=== PATIENT | female | born 1965 | race Caucasian/White ===

== ENCOUNTER 2018-11-15 08:03 | Day surgery (SDC) | payer BC ==
[~2018-11-15] VITALS: Ht 152.4 cm; Wt 57.2 kg
[2018-11-15] MEDS ORDERED: fentaNYL CITRATE/PF 100 MCG/2 ML AMP IVP ONE (09:35)
[2018-11-15] MEDS ORDERED: MIDAZOLAM HCL 5 MG/5 ML VIAL IVP ONE (09:35)
[2018-11-15] MEDS ORDERED: KETOROLAC TROMETHAMINE 30 MG VIAL IVP ONE (09:35)
[2018-11-15] MEDS ORDERED: SUCCINYLCHOLINE CHLORIDE 20 MG/ML(QUELICIN) IVP ONE (09:35)
[2018-11-15] MEDS ORDERED: SEVOFLURANE 15 MIN GAS INH ONE (09:35)
[2018-11-15] MEDS ORDERED: BACITRACIN ZINC 15 GM TOPICAL OINTMENT TP ONE (09:35)
[2018-11-15] MEDS ORDERED: NS IRRIG SOLN 1000 ML IR ONE (09:35)
[2018-11-15] MEDS ORDERED: LR 1,000 ML IV.SOLN IV ONE (09:35)
[2018-11-15] MEDS ORDERED: CEFAZOLIN 1 GM IVPB PREMIX 50 ML IV ONE (09:35)
[2018-11-15] MEDS ORDERED: THROMBIN (BOVINE) 5000 UNITS/ VIAL TP ONE ×2 (09:35→11:30)
[2018-11-15] MEDS ORDERED: ONDANSETRON HCL 4 MG/2 ML VIAL IVP ONE (09:35)
[2018-11-15] MEDS ORDERED: LIDOCAINE/EPI 1% 1:100000 20 ML VIAL INJ ONE (09:35)
[2018-11-15] MEDS ORDERED: PROPOFOL 200MG/ 20ML VIAL (DIPRIVAN) IV ONE (09:35)
[2018-11-15] MEDS ORDERED: ROCURONIUM BROMIDE 10 MG/ML (ZEMURON) IV ONE (09:35)
[2018-11-15] MEDS ORDERED: fentaNYL CITRATE 250 MCG/5 ML AMP IV ONE (09:35)
[2018-11-15] MEDS ORDERED: LR 1,000 ML IV SCH (10:42)
[2018-11-15] MEDS ORDERED: MEPERIDINE HCL/PF 25 MG/ML DISP.SYRIN IVP PRN (10:45)
[2018-11-15] MEDS ORDERED: HYDROmorphone 1 MG INJ. 1 MG/ML AMPUL IVP PRN (10:45)
[2018-11-15] MEDS ORDERED: HYDROmorphone 2 MG/ML VIAL IVP PRN ×2 (10:45)
[2018-11-15] MEDS ORDERED: ONDANSETRON HCL 4 MG/2 ML VIAL IVP PRN (12:30)
[2018-11-15] MEDS ORDERED: ONDANSETRON HCL 4 MG/2 ML VIAL ONE (13:55)
[2018-11-15] MEDS: NORMAL SALINE 5 ML DISP.SYRIN IVF SCH ×4 (14:00→22:00)
--- NOTE | 2018-11-15 14:00 | NUR ---
initial notes rec patient form rr s/p rt thyroidectomy. awake alert with ivf infusing well on the l hand. no infiltration noted. resp easy and unlabored. bed to the the lowest position and side rails up and locked. call light withn reached. dressing on the ant neck area intact. no bleeding noted. accompanied by at bedside.
--- NOTE | 2018-11-15 16:00 | NUR ---
rounds family at bedside. with hob elevated. no sob noted.
[2018-11-15 16:45] VITALS: BP_SYST 101
--- NOTE | 2018-11-15 18:20 | NUR ---
PAGED I PAGED CRYSTAL [phone] @ 1820 I SPOKE WITH BRITTANY ROJAS'S FACILITIES ENGINEER SHE SAID DR. 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 BAINS IS ASBESTOS REMOVAL WORKER AT HIS MOMENT.
--- NOTE | 2018-11-15 18:22 | NUR ---
PAGED I PAGED DR. BAINS @ [phone] I SPOKE WITH BASSAM COLLABORATIVE PHYSICIAN DR. BAINS CALLED BACK @ [phone]
[2018-11-15] MEDS: HYDROcodone/ACETAMIN 5-325 MG TAB (NORCO/ VICODIN) PO PRN (18:57)
[2018-11-15] MEDS ORDERED: BENZOCAINE/MENTHOL 1 EACH LOZENGE MM PRN (19:00)
[2018-11-15] MEDS ORDERED: guaiFENesin/DEXTROMETHORPHAN 10 ML UDC PO PRN (19:00)
--- NOTE | 2018-11-15 19:00 | NUR ---
closing notes pt ambu;lated to th e br and mark well. voided as stated. no sob noted. call light withn reached and knows when to call for assistance. dressing dry and intact and no bleeding noted. will endorsed to night nurse maggie.
[2018-11-15 20:00] VITALS: BP_SYST 120
--- NOTE | 2018-11-15 20:00 | NUR ---
Initial note: Received report from dayshift RN. Patient is awake in bed, no acute distress. Alert and oriented x4. Tolerating room air. IV to left AC is patent and benign, saline locked. Patient is s/p right thyroidectomy, original surgical dressing in place, clean, dry, intact. Call light is with patient. Safety, fall precautions in place. Will continue with plan of care.
[2018-11-15] MEDS: DEXAMETHASONE SOD PHOSPHATE 10 MG/ML VIAL IVP SCH (21:18)
--- NOTE | 2018-11-15 23:09 | NUR ---
Rounds: Patient is asleep, no distress noted. Respirations are even and unlabored on room air. Call light with patient. Will continue monitoring.
[2018-11-16 01:28] VITALS: BP_SYST 103
--- NOTE | 2018-11-16 02:25 | NUR ---
Rounds: Patient is sleeping in bed, no acute distress. Respirations are even, unlabored on room air. Call light is with patient. Will continue to monitor.
[2018-11-16] MEDS: HYDROcodone/ACETAMIN 5-325 MG TAB (NORCO/ VICODIN) PO PRN (02:54)
--- NOTE | 2018-11-16 02:57 | NUR ---
Pain: Patient complained of right side neck pain 5/10. Educated patient regarding [place] 5-325 indications and side effects, patient verbalized understanding. Administered medication as ordered. Call light with patient, will continue to monitor.
--- NOTE | 2018-11-16 04:28 | NUR ---
Rounds: Patient is resting in bed with eyes closed, no distress. Tolerating room air, respirations are even and unlabored. Call light is with patient. Will continue to monitor.
[2018-11-16] MEDS: NORMAL SALINE 5 ML DISP.SYRIN IVF SCH ×2 (06:00→06:14)
[2018-11-16] MEDS: DEXAMETHASONE SOD PHOSPHATE 10 MG/ML VIAL IVP SCH (06:13)
--- NOTE | 2018-11-16 06:46 | NUR ---
Closing note: Patient is awake, sitting up in bed. No acute distress. IV site remains patent and benign. Patient inspired 1500 ML using incentive spirometer. All needs met. HOB maintained above 30 degrees. Safety, fall precautions observed. Hourly rounding performed throughout shift. Will endorse care to dayshift RN.
--- NOTE | 2018-11-16 07:25 | NUR ---
AM ROUNDS: PATIENT ON THE BED,AWAKE,ALERT AND ORIENTED X4. WITH STERI STRIPS AT RIGHT NECK,CLEAN AND DRY. VISITOR AT THE BEDSIDE.DR GOMEZ JUST SEEN PATIENT AND DC ORDER PER PATIENT. INFORMED PATIENT WILL CHECK THE ORDER AND PREPARE THE DC PAPERS AFTER BREAKFAST.NO ACTIVE BLEEDING NOTED AT THE INCISION SITE.
[2018-11-16 08:47] VITALS: BP_SYST 99
--- NOTE | 2018-11-16 09:10 | NUR ---
Ambulates: Patient ambulates in the hallway . No problem.
[2018-11-16 09:55] VITALS: BP_SYST 99
--- NOTE | 2018-11-16 10:24 | NUR ---
D/C Patient Patient given medication reconciliation form and D/C instructions. Exit Care provided. Patient verbalized understanding. MD discussed with patient the results and treatment provided. Ambulatory with steady gait for discharge to home. Patient in stable condition, ID band removed. IV catheter removed, intact and dressing applied, no active bleeding. Patient already has prescriptions of pain meds and antibiotic given by Dr. Montague yesterday per patient. Patient educated on pain management. All belongings sent with patient.
== END 2018-11-16 10:24 | disposition home or self-care (01) ==
LOC: SDS 08:03 → SMU 08:03 → EDSTATUS 08:30 → SMU 18:41 → SDS 11-16 10:24
PROVIDERS: ATTEND Otolaryngology Plastic Surgery within the Head & Neck
DX: C73 Malignant neoplasm of thyroid gland (principal)
CPT/HCPCS: 60220; 88307; 88333; C1782; J0330; J0690; J1100 ×2; J1885; J2250; J2405; J2704; J3010 ×2; J7120

== ENCOUNTER 2018-12-06 06:00 | Day surgery (SDC) | payer BC ==
[~2018-12-06] VITALS: Ht 152.4 cm; Wt 56.7 kg
[2018-12-06] MEDS ORDERED: LIDOCAINE/EPI 1% 1:100000 20 ML VIAL INJ ONE (07:10)
[2018-12-06] MEDS ORDERED: KETAMINE HCL 500 MG/10 ML VIAL IVP ONE (07:10)
[2018-12-06] MEDS ORDERED: LR 1,000 ML IV.SOLN IV ONE (07:10)
[2018-12-06] MEDS ORDERED: NS IRRIG SOLN 1000 ML IR ONE (07:10)
[2018-12-06] MEDS ORDERED: BACITRACIN ZINC 15 GM TOPICAL OINTMENT TP ONE (07:10)
[2018-12-06] MEDS ORDERED: MIDAZOLAM HCL 5 MG/5 ML VIAL IVP ONE (07:10)
[2018-12-06] MEDS ORDERED: SEVOFLURANE 15 MIN GAS INH ONE (07:10)
[2018-12-06] MEDS ORDERED: PROPOFOL 200MG/ 20ML VIAL (DIPRIVAN) IV ONE ×2 (07:10)
[2018-12-06] MEDS ORDERED: ROCURONIUM BROMIDE 10 MG/ML (ZEMURON) IV ONE (07:10)
[2018-12-06] MEDS ORDERED: KETOROLAC TROMETHAMINE 30 MG VIAL IVP ONE (07:10)
[2018-12-06] MEDS ORDERED: METOCLOPRAMIDE HCL 10 MG/2 ML VIAL IVP ONE (07:10)
[2018-12-06] MEDS ORDERED: ONDANSETRON HCL 4 MG/2 ML VIAL IVP ONE (07:10)
[2018-12-06] MEDS ORDERED: CEFAZOLIN 1 GM IVPB PREMIX 50 ML IV ONE (07:10)
[2018-12-06] MEDS ORDERED: THROMBIN (BOVINE) 5000 UNITS/ VIAL TP ONE (08:02)
[2018-12-06] MEDS ORDERED: LR 1,000 ML IV SCH (08:20)
[2018-12-06] MEDS ORDERED: HYDROmorphone 1 MG INJ. 1 MG/ML AMPUL IVP PRN (08:30)
[2018-12-06] MEDS ORDERED: HYDROmorphone 2 MG/ML VIAL IVP PRN ×2 (08:30)
[2018-12-06] MEDS ORDERED: MEPERIDINE HCL/PF 25 MG/ML DISP.SYRIN IVP PRN (08:30)
[2018-12-06] MEDS ORDERED: ONDANSETRON HCL 4 MG/2 ML VIAL IVP PRN (09:30)
[2018-12-06] MEDS ORDERED: HYDROcodone/ACETAMIN 5-325 MG TAB (NORCO/ VICODIN) PO PRN (09:30)
[2018-12-06 10:45] VITALS: BP_SYST 101
--- NOTE | 2018-12-06 10:45 | NUR ---
Admission Patient admitted to med surg unit from PACU. Patient is S/P total thyroidectomy. Left thyroidectomy performed today, and right thyroidectomy done on 11/15/2018. Patient is A/Ox4, no complaints of pain. IV patent, intact. SCD in place. Vital signs stable. SCD in place. Educated patient on the incentive spirometer, why to use, how to use, and when to use. Patient verbalized understanding, and return demonstration done by patient, patient inspired 2000ml . Patient has surgical dressing on neck. Dressing intact, no drainage, no bleeding. On safety and aspiration precautions, HOB kept elevated, bed alarm on, bed in lowest position, 3 side rails up. educated patient on the call light system, patient verbalized understanding. patient in stable condition, will continue to monitor.
[2018-12-06 11:09] VITALS: BP_SYST 101
[2018-12-06 12:27] VITALS: BP_SYST 92
--- NOTE | 2018-12-06 12:36 | NUR ---
Lunch Patient sitting up in bed, eating lunch, tolerating well. No trouble swallowing. No complaints of pain. No nausea, no vomiting noted. patient in stable condition.
--- NOTE | 2018-12-06 13:53 | NUR ---
Rounds patient resting in bed, no complaints of pain. Reminded patient to use the incentive spirometer, patient verbalized understanding. 2000ml inspired by patient.
[2018-12-06] MEDS ORDERED: NORMAL SALINE 5 ML DISP.SYRIN IVF SCH (14:00)
[2018-12-06] MEDS: NORMAL SALINE 5 ML DISP.SYRIN IVF SCH ×2 (14:12→22:07)
--- NOTE | 2018-12-06 16:00 | NUR ---
Rounds Patient sitting up in bed at this time, no SOB. No complaints of pain. Patient ambulated to the restroom and back to bed with steady gait. patient in stable condition at this time.
--- NOTE | 2018-12-06 18:30 | NUR ---
Closing note Patient sitting up in bed at this time, no complaints of pain. at bedside. No SOB. No bleeding on incision site. No nausea, no vomiting noted. Vital signs stable. SCD in place. On safety and aspiration precautions. HOB kept elevated, bed alarm on, bed in lowest position, 3 side rails up. Call light within reach. patient in stable condition. All needs met.
[2018-12-06 18:51] VITALS: BP_SYST 104
--- NOTE | 2018-12-06 19:30 | NUR ---
Initial Notes Received handoff report from offgoing nurse at the bedside. Patient is AAOx4, resting comfortably in bedside. Family at the bedside. IV site intact, dressing clean and dry, saline locked. Bed is locked, in the lowest position, 2x side rails up, bed alarm is on. Call light is within reach. Encouraged patient to call for assistance. Will continue with plan of care.
[2018-12-06 20:00] VITALS: BP_SYST 97
--- NOTE | 2018-12-06 20:00 | NUR ---
Emergency Trach Kit available at the bedside. Incentive spirometer teaching done, patient able to demonstrate proper incentive spirometer usage and reaches 1500ml at this time. Educated patient to use the incentive spirometer frequently while awake. Patient verbalizes understanding. Patient also states that she had a bowel movement today, but that was before surgery. She has not had a bowel movement yet after surgery, nor has she passed gas yet. Bowel sounds are heard on auscultation. Encouraged patient to ambulate more frequently to promote peristalsis of the bowels. Patient verbalizes understanding.
--- NOTE | 2018-12-06 22:06 | NUR ---
Patient is complaining of left neck pain. 4/10, sharp and aching. Provided patient with [place] 5-325mg 1 tablet per MD order, see eMAR for details. Will continue to monitor pain management.
[2018-12-06] MEDS: DEXAMETHASONE SOD PHOSPHATE 4 MG/ML VIAL IVP SCH (22:07)
--- NOTE | 2018-12-06 23:21 | NUR ---
Dr Montague called the nurses station to inquire about the patient. Informed Dr Montague regarding patient's calcium level being 8.9. No new orders at this time. Dr Montague stated that there will be another calcium lab draw at 0200, and to notify him if there are any abnormal values.
[2018-12-07] VITALS: BP_SYST 115
--- NOTE | 2018-12-07 00:52 | NUR ---
Patient resting comfortably in bed, eyes closed. Breathing even and unlabored with visible chest rise and fall noted. No SOB, no acute distress, no signs of pain or facial grimacing at this time. Bed is locked, in the lowest position, 2x side rails up, bed alarm is on. Call light is within reach.
--- NOTE | 2018-12-07 02:30 | NUR ---
Rounding Notes Patient resting comfortably in bed, eyes closed. Breathing even and unlabored with visible chest rise and fall noted. No SOB, no acute distress, no signs of pain or facial grimacing noted. Bed is locked, in the lowest position, 2x side rails up, bed alarm is on. Call light is within reach.
--- NOTE | 2018-12-07 03:21 | NUR ---
Paging Dr Montague [phone]. Exchange connected directly to Dr Montague. Reported patient calcium lab draw for [address] Montague stated that if she has no symptoms, then no new orders and he will come see the patient in the morning. However, it patient has sensations of numbness or tingling on the lips, to call him back for orders.
--- NOTE | 2018-12-07 03:30 | NUR ---
Patient resting comfortably in bed, AAOx4. Patient stated that she just woke up. Asked the patient if she currently has any abnormal sensations on her teeth or lips, such as numbness or tingling. The patient denied these sensations at this time. Encouraged patient to call for assistance if she does experience any of the signs and symptoms of calcium deficiency. Patient verbalized understanding. Will continue to monitor patient closely.
--- NOTE | 2018-12-07 05:16 | NUR ---
Patient resting comfortably in bed, eyes closed. Breathing even and unlabored with visible chest rise and fall noted. No SOB, no acute distress, no signs of pain at this time. Bed is locked, in the lowest position, 2x side rails up, bed alarm is on. Call light is within reach.
[2018-12-07] MEDS: NORMAL SALINE 5 ML DISP.SYRIN IVF SCH (05:38)
[2018-12-07] MEDS: DEXAMETHASONE SOD PHOSPHATE 4 MG/ML VIAL IVP SCH (05:38)
--- NOTE | 2018-12-07 06:16 | NUR ---
Closing Notes Patient is resting comfortably in bed, AAOx4. No SOB, no acute distress, no complaints of pain at this time. IV site is intact, dressing clean and dry, saline locked. Bed is locked, in the lowest position, 2x side rails up, bed alarm is on. Call light is within reach. Fall and safety precautions maintained. All needs have been met during this shift. Will endorse care to oncoming dayshift nurse.
--- NOTE | 2018-12-07 07:30 | NUR ---
Opening note Patient sitting up in bed at this time, A/Ox4, no complaints of pain. at bedside. No SOB. No bleeding on incision site. No nausea, no vomiting noted. Vital signs stable. SCD in place. On safety and aspiration precautions. HOB kept elevated, bed alarm on, bed in lowest position, 3 side rails up. Call light within reach. Will continue to monitor.
[2018-12-07 08:31] VITALS: BP_SYST 123
[2018-12-07 08:37] VITALS: BP_SYST 123
== END 2018-12-07 09:00 | disposition home or self-care (01) ==
LOC: SDS 06:00 → SMU 06:00 → EDSTATUS 07:30 → SMU 12:43 → SDS 12-07 09:00
PROVIDERS: ATTEND Otolaryngology Plastic Surgery within the Head & Neck
DX: E04.9 Nontoxic goiter, unspecified (principal); Z98.890 Other specified postprocedural states; Z85.850 Personal history of malignant neoplasm of thyroid
CPT/HCPCS: 36415; 60220; 82310; 87081 ×2; 88307; J0690; J1100 ×2; J1885; J2250; J2405; J2704; J2765; J7120